=== PATIENT | female | born 1995 | race Caucasian/White ===

== ENCOUNTER 2019-01-19 14:17 | Emergency (ER) | payer OTHER, SELFPAY ==
[2019-01-19 14:45] VITALS: BP 110/70; PULSE 70; RESP 16; TEMP 36.7; O2SAT 100
--- NOTE | 2019-01-19 16:00 | ED.ABDPAIN ---
HPI - Abdominal Pain <PUJA Melton - Last Filed: 01/19/19 21:24> General Chief Complaint: Abdominal Pain Stated Complaint: ABD PAIN Time Seen by Provider: 01/19/19 15:36 Source: patient Mode of arrival: ambulatory Limitations: no limitations History of Present Illness HPI narrative: 23-year-old healthy female that is a nonsmoker for complaint of pain into her right upper quadrant for the last few days. She states the pain at the time of exam has gone away. She denies any stressors or relievers of her pain. last p.o. intake was earlier today. She denies that eating or drinking causes increases of her pain. No nausea vomiting. No fevers no chills. no trauma to the abdomen. Last bowel movement was yesterday and was unremarkable. she denies any other concerns or complaints at this time frame. MD complaint: abdominal pain Related Data Allergies Allergy/AdvReac Type Severity Reaction Status Date / Time No Known Drug Allergies Allergy Mild Unverified 01/28/18 13:08 venom-honey bee Allergy Unknown Unverified 01/28/18 13:08 [bee venom (honey bee)] Review of Systems <PUJA Melton - Last Filed: 01/19/19 21:24> Eyes Denies change in vision, Denies eye discharge, Denies irritation and Denies loss of vision Cardiovascular Denies dyspnea and Denies dyspnea on exertion Respiratory Denies cough, Denies dyspnea, Denies dyspnea on exertion and Denies wheezing Gastrointestinal Gastrointestinal: Reports abdominal pain, Denies change in bowel habits, Denies diarrhea, Denies nausea and Denies vomiting Genitourinary Denies hematuria, Denies flank pain, Denies urinary incontinence and Denies urinary urgency Musculoskeletal Denies back pain, Denies muscle weakness, Denies numbness and Denies tingling Integumentary/Breasts Denies pruritus, Denies erythema, Denies rash and Denies wounds Neurologic Denies loss of vision, Denies numbness and Denies tingling Hematologic/Lymphatic Denies easy bruising Allergic/Immunologic Denies wheezing PFSH <PUJA Melton - Last Filed: 01/19/19 21:24> Social History Smoking Status: Never smoker Social History Smoking Status: Never smoker Exam <PUJA Melton - Last Filed: 01/19/19 21:24> Initial Vital Signs Initial Vital Signs: Vital Signs Temperature 98.0 F 01/19/19 14:45 Pulse Rate 70 01/19/19 14:45 Respiratory Rate 16 01/19/19 14:45 Blood Pressure 110/70 01/19/19 14:45 Pulse Oximetry 100 01/19/19 14:45 Const General: cooperative and well developed Nutritional Appearance: well nourished Orientation: alert, awake, oriented x3 and not confused HENUT Mouth: oral mucosae normal and moist mucous membranes Eyes Conjunctivae: conjunctivae normal Sclera: sclerae normal Pupils: PERRL EOM: EOM intact bilaterally Resp Effort & Inspection: normal respiratory effort, able to speak in complete sentences, no respiratory distress and no use of accessory muscles Auscultation: clear to auscultation bilaterally, no rales, no rhonchi and no wheezes Cardio Rate: regular rate Rhythm: regular rhythm Heart Sounds: no click, no gallops, no murmurs and no rubs Pulses: normal peripheral pulses GI Inspection: non-distended Palpation: soft, no hepatosplenomegaly, No guarding, No pulsatile mass and No tender Auscultation: normal bowel sounds General: No CVA tenderness Skin General: no rashes or lesions noted, No jaundice and No petechiae Neuro General: alert, oriented x3, gait normal and no focal motor deficits Speech: speech normal <Chanda Moreno DO - Last Filed: 01/22/19 07:21> Initial Vital Signs Initial Vital Signs: Vital Signs Temperature 98.0 F 01/19/19 14:45 Pulse Rate 70 01/19/19 14:45 Respiratory Rate 16 01/19/19 14:45 Blood Pressure 110/70 01/19/19 14:45 Pulse Oximetry 100 01/19/19 14:45 Course <PUJA Melton - Last Filed: 01/19/19 21:24> Orders Ordered: ED Orders 01/19/19 16:16 US abdomen complete Stat 01/19/19 16:22 Complete Blood Count AUTO DIFF Stat Comprehensive Metabolic Panel Stat Lipase Stat Vital Signs - 8 hr 01/19/19 14:45 01/19/19 16:05 01/19/19 18:31 Temperature 98.0 F 98.1 F Pulse Rate 70 68 77 Respiratory Rate 16 15 18 Blood Pressure 110/70 110/71 Blood Pressure [Right Arm] 112/62 Pulse Oximetry 100 98 98 <Chanda Moreno DO - Last Filed: 01/22/19 07:21> Orders Ordered: ED Orders 01/19/19 16:16 US abdomen complete Stat 01/19/19 16:22 Complete Blood Count AUTO DIFF Stat Comprehensive Metabolic Panel Stat Lipase Stat Vital Signs - 8 hr 01/19/19 14:45 01/19/19 16:05 01/19/19 18:31 Temperature 98.0 F 98.1 F Pulse Rate 70 68 77 Respiratory Rate 16 15 18 Blood Pressure 110/70 110/71 Blood Pressure [Right Arm] 112/62 Pulse Oximetry 100 98 98 MDM - Abdominal Pain <PUJA Melton - Last Filed: 01/19/19 21:24> Lab Data Result diagrams: 01/19/19 16:22 01/19/19 16:22 Lab Results 01/19/19 01/19/19 Range/Units 16:22 16:22 WBC 5.0 (4.5-11.0) X10^3/uL RBC 4.52 (4.0-5.2) X10^6/uL Hgb 13.2 (12.0-16.0) g/dL Hct 39.5 (36-46) % MCV 87.5 (80-100) fL MCH 29.2 (26-34) PG MCHC 33.3 (30-36) % RDW 13.5 (11.6-14.8) % Plt Count 270 (150-400) X10^3/uL Neut % (Auto) 68.1 (50-75) % Lymph % (Auto) 22.1 L (25-40) % [place] % (Auto) 7.5 (3-14) % Eos % (Auto) 1.8 L (2-4) % Baso % (Auto) 0.5 (0-2) % Neut # (Auto) 3400 (3811-8857) /uL Lymph # (Auto) 1100 (9627-0224) /uL [place] # (Auto) 400 (0-900) /uL Eos # (Auto) 100 (0-450) /uL Baso # (Auto) 0 (0-100) /uL Sodium 138 (137-145) mmol/L Potassium 3.7 (3.4-5.1) mmol/L Chloride 103 (98-107) mmol/L Carbon Dioxide 26 (22-32) mmol/L BUN 9 (7-17) mg/dL Creatinine 0.60 (0.52-1.04) mg/dL Estimated GFR > 60.0 (>60) mL/min BUN/Creatinine Ratio 15.0 (6-22) Glucose 84 (70-100) mg/dL Calcium 9.1 (8.4-10.2) mg/dL Total Bilirubin 0.7 (0.2-1.3) mg/dL AST 31 (14-36) IU/L ALT 55 H (9-52) IU/L Alkaline Phosphatase 50 (38-126) U/L Total Protein 7.1 (6.3-8.2) g/dL Albumin 4.6 (3.5-5.0) g/dL Globulin 2.5 (1.7-4.1) g/dL Albumin/Globulin Ratio 1.8 (1.0-2.8) Lipase 45 (23-300) U/L Point of care testing: Point of Care Testing Test Results Negative Urine Dip Bedside Urine Glucose Negative Bedside Urine Bilirubin - Negative Bedside Urine Ketone ++ 40 Urine Specific [place] 1.015 Bedside Urine Occult Blood - Negative Bedside Urine pH 7.5 Bedside Urine Protein - Negative Bedside Urine Urobilinogen - Negative Bedside Urine Nitrite - Negative Bedside Urine Leukocytes - Negative Esterase Imaging Data US - abdomen: Radiologist's impression: [address] [address] Ultrasound Report Signed Patient: Taya Brower [facility]#: [id number] : 1995Acct:[id number] Age/Sex: 23 / FDate of Service: 01/19/19 Loc: ED Accession Number: [id number] Procedure: US abdomen complete Ordering Provider: Madan Aguilar PROCEDURE: US ABDOMEN COMPLETE INDICATIONS: RIGHT UPPER QUADRANT PAIN TECHNIQUE: Real-time scanning was performed of the abdominal and retroperitoneal organs, with image documentation. COMPARISON: None. FINDINGS: Liver: Liver is normal in size and homogeneous in echotexture. Gallbladder: Gallbladder demonstrates no visualized stones or sludge. Wall thickness is at the upper limits of normal measuring 3 mm. Biliary ducts: Intrahepatic bile ducts are non-dilated. Extrahepatic bile duct caliber measures 3 mm. Normal is 6-7 mm or less in diameter, or 10 mm or less post-cholecystectomy. Pancreas: Visualized portions of the pancreas are sonographically normal. Spleen: Spleen is normal in size and homogeneous in echotexture. Kidneys: Kidneys are normal in size and echotexture. Right kidney measures 10.4 cm long; left kidney measures 11.1 cm long. No hydronephrosis or nephrolithiasis. No solid masses. Aorta: Visualized aorta is normal in caliber at less than 3 cm. Iliacs: Proximal common iliac arteries are normal in caliber at less than 2.5 cm. IVC: Intrahepatic inferior vena cava is patent. Miscellaneous: No free abdominal fluid. IMPRESSION: 1. Gallbladder demonstrates wall thickness at the upper limits of normal. No visualized stones. Recommend correlation of patient's symptoms, as acalculus cholecystitis cannot be definitively excluded. Dictated by: Padmaja Schmidt M.D. on 01/19/2019 at 17:19 Approved by: Padmaja Schmidt M.D. on 01/19/2019 at 17:20 MDM Narrative Medical decision making narrative: CBC was obtained was unremarkable. Chemistry panel was also obtained was unremarkable. lipase was normal. ultrasound was obtained and shows the gallbladder wall thickness at upper limits of normal. No cholelithiasis. She is not tender to the abdomen area at this time frame. Her laboratory results were unremarkable. Do not appreciate cholecystitis at this time frame. Suspect there is some abdominal wall discomfort due to muscle strain. [id number] Tylenol as needed for any discomfort. Breast area. Follow up with primary care provider. Return emergency room for any worsening symptoms. <Chanda oMreno DO - Last Filed: 01/22/19 07:21> Lab Data Lab Results 01/19/19 01/19/19 Range/Units 16:22 16:22 WBC 5.0 (4.5-11.0) X10^3/uL RBC 4.52 (4.0-5.2) X10^6/uL Hgb 13.2 (12.0-16.0) g/dL Hct 39.5 (36-46) % MCV 87.5 (80-100) fL MCH 29.2 (26-34) PG MCHC 33.3 (30-36) % RDW 13.5 (11.6-14.8) % Plt Count 270 (150-400) X10^3/uL Neut % (Auto) 68.1 (50-75) % Lymph % (Auto) 22.1 L (25-40) % [place] % (Auto) 7.5 (3-14) % Eos % (Auto) 1.8 L (2-4) % Baso % (Auto) 0.5 (0-2) % Neut # (Auto) 3400 (5595-5755) /uL Lymph # (Auto) 1100 (5807-8783) /uL [place] # (Auto) 400 (0-900) /uL Eos # (Auto) 100 (0-450) /uL Baso # (Auto) 0 (0-100) /uL Sodium 138 (137-145) mmol/L Potassium 3.7 (3.4-5.1) mmol/L Chloride 103 (98-107) mmol/L Carbon Dioxide 26 (22-32) mmol/L BUN 9 (7-17) mg/dL Creatinine 0.60 (0.52-1.04) mg/dL Estimated GFR > 60.0 (>60) mL/min BUN/Creatinine Ratio 15.0 (6-22) Glucose 84 (70-100) mg/dL Calcium 9.1 (8.4-10.2) mg/dL Total Bilirubin 0.7 (0.2-1.3) mg/dL AST 31 (14-36) IU/L ALT 55 H (9-52) IU/L Alkaline Phosphatase 50 (38-126) U/L Total Protein 7.1 (6.3-8.2) g/dL Albumin 4.6 (3.5-5.0) g/dL Globulin 2.5 (1.7-4.1) g/dL Albumin/Globulin Ratio 1.8 (1.0-2.8) Lipase 45 (23-300) U/L Point of care testing: Point of Care Testing Test Results Negative Urine Dip Bedside Urine Glucose Negative Bedside Urine Bilirubin - Negative Bedside Urine Ketone ++ 40 Urine Specific [place] 1.015 Bedside Urine Occult Blood - Negative Bedside Urine pH 7.5 Bedside Urine Protein - Negative Bedside Urine Urobilinogen - Negative Bedside Urine Nitrite - Negative Bedside Urine Leukocytes - Negative Esterase Discharge Plan Departure Patient Disposition: Home Clinical Impression: Abdominal wall pain Discharge Date/Time: 01/19/19 18:30 Interventions: ED Discharge Assessment Last Done: 01/19/19 18:31 Instructions: DI for Abdominal Pain-Adult Activity Restrictions/Additional Instructions: Laboratory results today were unremarkable. ultrasound of the abdomen was obtained and shows that the gallbladder has falls that are upper range of normal for thickness. No gallstones are seen in today. Do not appreciate gallbladder illness at this time frame. Signs symptoms presents as abdominal wall pain due to muscle strain. Breast area. Use [id number] Tylenol as needed for any discomfort. Follow up with primary care provider. For any worsening symptoms return to the emergency room. Referrals: Mihir Waller MD [Primary Care Provider] - <Chanda Moreno DO - Last Filed: 01/22/19 07:21> Cosign ED Attending Alexandreaature Attestation: I was immediately available in the department for consultation. This documentation has been reviewed and I agree with assessment and plan. Supervised by Chanda Moreno DO
[2019-01-19 16:05] VITALS: BP 112/62; PULSE 68; RESP 15; O2SAT 98
--- NOTE | 2019-01-19 16:16 | DI.US.S_ITS ---
PROCEDURE: US ABDOMEN COMPLETE INDICATIONS: RIGHT UPPER QUADRANT PAIN TECHNIQUE: Real-time scanning was performed of the abdominal and retroperitoneal organs, with image documentation. COMPARISON: None. FINDINGS: Liver: Liver is normal in size and homogeneous in echotexture. Gallbladder: Gallbladder demonstrates no visualized stones or sludge. Wall thickness is at the upper limits of normal measuring 3 mm. Biliary ducts: Intrahepatic bile ducts are non-dilated. Extrahepatic bile duct caliber measures 3 mm. Normal is 6-7 mm or less in diameter, or 10 mm or less post-cholecystectomy. Pancreas: Visualized portions of the pancreas are sonographically normal. Spleen: Spleen is normal in size and homogeneous in echotexture. Kidneys: Kidneys are normal in size and echotexture. Right kidney measures 10.4 cm long; left kidney measures 11.1 cm long. No hydronephrosis or nephrolithiasis. No solid masses. Aorta: Visualized aorta is normal in caliber at less than 3 cm. Iliacs: Proximal common iliac arteries are normal in caliber at less than 2.5 cm. IVC: Intrahepatic inferior vena cava is patent. Miscellaneous: No free abdominal fluid. IMPRESSION: 1. Gallbladder demonstrates wall thickness at the upper limits of normal. No visualized stones. Recommend correlation of patient's symptoms, as acalculus cholecystitis cannot be definitively excluded. Dictated by: Padmaja Schmidt M.D. on 01/19/2019 at 17:19 Approved by: Padmaja Schmidt M.D. on 01/19/2019 at 17:20
[2019-01-19 16:41] LABS: Add Manual Diff / Slide Review NO; Basophils Absolute Auto 0 /uL (0-100); Basophils Percent Auto 0.5 % (0-2); Eosinophils Absolute Auto 100 /uL (0-450); Eosinophils Percent Auto 1.8 % (2-4); Hematocrit 39.5 % (36-46); Hemoglobin 13.2 g/dL (12.0-16.0); Lymphocytes Absolute Auto 1100 /uL (1100-4500); Lymphocytes Percent Auto 22.1 % (25-40); Mean Corpuscular HGB Conc 33.3 % (30-36); Mean Corpuscular Hemoglobin 29.2 PG (26-34); Mean Corpuscular Volume 87.5 fL (80-100); Monocytes Absolute Auto 400 /uL (0-900); Monocytes Percent Auto 7.5 % (3-14); Neutrophils Absolute Auto 3400 /uL (1500-7000); Neutrophils Percent Auto 68.1 % (50-75); Platelet Count 270 X10^3/uL (150-400); Red Blood Cell Count 4.52 X10^6/uL (4.0-5.2); Red Cell Distribution Width 13.5 % (11.6-14.8)
[2019-01-19 17:13] LABS: Alanine Aminotransferase 55 IU/L (9-52); Albumin 4.6 g/dL (3.5-5.0); Albumin Globulin Ratio 1.8 (1.0-2.8); Alkaline Phosphatase 50 U/L (38-126); Aspartate Aminotransferase 31 IU/L (14-36); Bilirubin Total 0.7 mg/dL (0.2-1.3); Blood Urea Nitrogen 9 mg/dL (7-17); Calcium 9.1 mg/dL (8.4-10.2); Carbon Dioxide 26 mmol/L (22-32); Chloride 103 mmol/L (98-107); Estimated Glomerular Filt Rate > 60.0 mL/min (>60); Globulin 2.5 g/dL (1.7-4.1); Glucose 84 mg/dL (70-100); HEMOLYSIS < 15 (0-50); Lipase 45 U/L (23-300); Potassium 3.7 mmol/L (3.4-5.1); Sodium 138 mmol/L (137-145); Total Protein 7.1 g/dL (6.3-8.2)
--- NOTE | 2019-01-19 18:14 | ED_ITS ---
HPI - Abdominal Pain <PUJA Melton - Last Filed: 01/19/19 21:24> General Chief Complaint: Abdominal Pain Stated Complaint: ABD PAIN Time Seen by Provider: 01/19/19 15:36 Source: patient Mode of arrival: ambulatory Limitations: no limitations History of Present Illness HPI narrative: 23-year-old healthy female that is a nonsmoker for complaint of pain into her right upper quadrant for the last few days. She states the pain at the time of exam has gone away. She denies any stressors or relievers of her pain. last p.o. intake was earlier today. She denies that eating or drinking causes increases of her pain. No nausea vomiting. No fevers no chills. no trauma to the abdomen. Last bowel movement was yesterday and was unremarkable. she denies any other concerns or complaints at this time frame. MD complaint: abdominal pain Related Data Allergies Allergy/AdvReac Type Severity Reaction Status Date / Time No Known Drug Allergies Allergy Mild Unverified 01/28/18 13:08 venom-honey bee Allergy Unknown Unverified 01/28/18 13:08 [bee venom (honey bee)] Review of Systems <PUJA Melton - Last Filed: 01/19/19 21:24> Eyes Denies change in vision, Denies eye discharge, Denies irritation and Denies loss of vision Cardiovascular Denies dyspnea and Denies dyspnea on exertion Respiratory Denies cough, Denies dyspnea, Denies dyspnea on exertion and Denies wheezing Gastrointestinal Gastrointestinal: Reports abdominal pain, Denies change in bowel habits, Denies diarrhea, Denies nausea and Denies vomiting Genitourinary Denies hematuria, Denies flank pain, Denies urinary incontinence and Denies urinary urgency Musculoskeletal Denies back pain, Denies muscle weakness, Denies numbness and Denies tingling Integumentary/Breasts Denies pruritus, Denies erythema, Denies rash and Denies wounds Neurologic Denies loss of vision, Denies numbness and Denies tingling Hematologic/Lymphatic Denies easy bruising Allergic/Immunologic Denies wheezing PFSH <PUJA Melton - Last Filed: 01/19/19 21:24> Social History Smoking Status: Never smoker Social History Smoking Status: Never smoker Exam <PUJA Melton - Last Filed: 01/19/19 21:24> Initial Vital Signs Initial Vital Signs: Vital Signs Temperature 98.0 F 01/19/19 14:45 Pulse Rate 70 01/19/19 14:45 Respiratory Rate 16 01/19/19 14:45 Blood Pressure 110/70 01/19/19 14:45 Pulse Oximetry 100 01/19/19 14:45 Const General: cooperative and well developed Nutritional Appearance: well nourished Orientation: alert, awake, oriented x3 and not confused HENDC Mouth: oral mucosae normal and moist mucous membranes Eyes Conjunctivae: conjunctivae normal Sclera: sclerae normal Pupils: PERRL EOM: EOM intact bilaterally Resp Effort & Inspection: normal respiratory effort, able to speak in complete sentences, no respiratory distress and no use of accessory muscles Auscultation: clear to auscultation bilaterally, no rales, no rhonchi and no wheezes Cardio Rate: regular rate Rhythm: regular rhythm Heart Sounds: no click, no gallops, no murmurs and no rubs Pulses: normal peripheral pulses GI Inspection: non-distended Palpation: soft, no hepatosplenomegaly, No guarding, No pulsatile mass and No tender Auscultation: normal bowel sounds General: No CVA tenderness Skin General: no rashes or lesions noted, No jaundice and No petechiae Neuro General: alert, oriented x3, gait normal and no focal motor deficits Speech: speech normal <Chanda Moreno DO - Last Filed: 01/22/19 07:21> Initial Vital Signs Initial Vital Signs: Vital Signs Temperature 98.0 F 01/19/19 14:45 Pulse Rate 70 01/19/19 14:45 Respiratory Rate 16 01/19/19 14:45 Blood Pressure 110/70 01/19/19 14:45 Pulse Oximetry 100 01/19/19 14:45 Course <PUJA Melton - Last Filed: 01/19/19 21:24> Orders Ordered: ED Orders 01/19/19 16:16 US abdomen complete Stat 01/19/19 16:22 Complete Blood Count AUTO DIFF Stat Comprehensive Metabolic Panel Stat Lipase Stat Vital Signs - 8 hr 01/19/19 14:45 01/19/19 16:05 01/19/19 18:31 Temperature 98.0 F 98.1 F Pulse Rate 70 68 77 Respiratory Rate 16 15 18 Blood Pressure 110/70 110/71 Blood Pressure [Right Arm] 112/62 Pulse Oximetry 100 98 98 <Chanda Moreno DO - Last Filed: 01/22/19 07:21> Orders Ordered: ED Orders 01/19/19 16:16 US abdomen complete Stat 01/19/19 16:22 Complete Blood Count AUTO DIFF Stat Comprehensive Metabolic Panel Stat Lipase Stat Vital Signs - 8 hr 01/19/19 14:45 01/19/19 16:05 01/19/19 18:31 Temperature 98.0 F 98.1 F Pulse Rate 70 68 77 Respiratory Rate 16 15 18 Blood Pressure 110/70 110/71 Blood Pressure [Right Arm] 112/62 Pulse Oximetry 100 98 98 MDM - Abdominal Pain <PUJA Melton - Last Filed: 01/19/19 21:24> Lab Data Result diagrams: 01/19/19 16:22 01/19/19 16:22 Lab Results 01/19/19 01/19/19 Range/Units 16:22 16:22 WBC 5.0 (4.5-11.0) X10^3/uL RBC 4.52 (4.0-5.2) X10^6/uL Hgb 13.2 (12.0-16.0) g/dL Hct 39.5 (36-46) % MCV 87.5 (80-100) fL MCH 29.2 (26-34) PG MCHC 33.3 (30-36) % RDW 13.5 (11.6-14.8) % Plt Count 270 (150-400) X10^3/uL Neut % (Auto) 68.1 (50-75) % Lymph % (Auto) 22.1 L (25-40) % [place] % (Auto) 7.5 (3-14) % Eos % (Auto) 1.8 L (2-4) % Baso % (Auto) 0.5 (0-2) % Neut # (Auto) 3400 (4592-7949) /uL Lymph # (Auto) 1100 (9857-2591) /uL [place] # (Auto) 400 (0-900) /uL Eos # (Auto) 100 (0-450) /uL Baso # (Auto) 0 (0-100) /uL Sodium 138 (137-145) mmol/L Potassium 3.7 (3.4-5.1) mmol/L Chloride 103 (98-107) mmol/L Carbon Dioxide 26 (22-32) mmol/L BUN 9 (7-17) mg/dL Creatinine 0.60 (0.52-1.04) mg/dL Estimated GFR > 60.0 (>60) mL/min BUN/Creatinine Ratio 15.0 (6-22) Glucose 84 (70-100) mg/dL Calcium 9.1 (8.4-10.2) mg/dL Total Bilirubin 0.7 (0.2-1.3) mg/dL AST 31 (14-36) IU/L ALT 55 H (9-52) IU/L Alkaline Phosphatase 50 (38-126) U/L Total Protein 7.1 (6.3-8.2) g/dL Albumin 4.6 (3.5-5.0) g/dL Globulin 2.5 (1.7-4.1) g/dL Albumin/Globulin Ratio 1.8 (1.0-2.8) Lipase 45 (23-300) U/L Point of care testing: Point of Care Testing Test Results Negative Urine Dip Bedside Urine Glucose Negative Bedside Urine Bilirubin - Negative Bedside Urine Ketone ++ 40 Urine Specific [place] 1.015 Bedside Urine Occult Blood - Negative Bedside Urine pH 7.5 Bedside Urine Protein - Negative Bedside Urine Urobilinogen - Negative Bedside Urine Nitrite - Negative Bedside Urine Leukocytes - Negative Esterase Imaging Data US - abdomen: Radiologist's impression: [address] [id number] Ultrasound Report Signed Patient: Taya Brower [facility]#: [id number] : 1995Acct:[id number] Age/Sex: 23 / FDate of Service: 01/19/19 Loc: ED Accession Number: [id number] Procedure: US abdomen complete Ordering Provider: Madan Aguilar PROCEDURE: US ABDOMEN COMPLETE INDICATIONS: RIGHT UPPER QUADRANT PAIN TECHNIQUE: Real-time scanning was performed of the abdominal and retroperitoneal organs, with image documentation. COMPARISON: None. FINDINGS: Liver: Liver is normal in size and homogeneous in echotexture. Gallbladder: Gallbladder demonstrates no visualized stones or sludge. Wall thickness is at the upper limits of normal measuring 3 mm. Biliary ducts: Intrahepatic bile ducts are non-dilated. Extrahepatic bile duct caliber measures 3 mm. Normal is 6-7 mm or less in diameter, or 10 mm or less post-cholecystectomy. Pancreas: Visualized portions of the pancreas are sonographically normal. Spleen: Spleen is normal in size and homogeneous in echotexture. Kidneys: Kidneys are normal in size and echotexture. Right kidney measures 10.4 cm long; left kidney measures 11.1 cm long. No hydronephrosis or nephrolithiasis. No solid masses. Aorta: Visualized aorta is normal in caliber at less than 3 cm. Iliacs: Proximal common iliac arteries are normal in caliber at less than 2.5 cm. IVC: Intrahepatic inferior vena cava is patent. Miscellaneous: No free abdominal fluid. IMPRESSION: 1. Gallbladder demonstrates wall thickness at the upper limits of normal. No visualized stones. Recommend correlation of patient's symptoms, as acalculus cholecystitis cannot be definitively excluded. Dictated by: Padmaja Schmidt M.D. on 01/19/2019 at 17:19 Approved by: Padmaja Schmidt M.D. on 01/19/2019 at 17:20 MDM Narrative Medical decision making narrative: CBC was obtained was unremarkable. Chemistry panel was also obtained was unremarkable. lipase was normal. ultrasound was obtained and shows the gallbladder wall thickness at upper limits of normal. No cholelithiasis. She is not tender to the abdomen area at this time frame. Her laboratory results were unremarkable. Do not appreciate cholecystitis at this time frame. Suspect there is some abdominal wall discomfort due to muscle strain. [id number] Tylenol as needed for any discomfort. Breast area. Follow up with primary care provider. Return emergency room for any worsening symptoms. <Chanda Moreno DO - Last Filed: 01/22/19 07:21> Lab Data Lab Results 01/19/19 01/19/19 Range/Units 16:22 16:22 WBC 5.0 (4.5-11.0) X10^3/uL RBC 4.52 (4.0-5.2) X10^6/uL Hgb 13.2 (12.0-16.0) g/dL Hct 39.5 (36-46) % MCV 87.5 (80-100) fL MCH 29.2 (26-34) PG MCHC 33.3 (30-36) % RDW 13.5 (11.6-14.8) % Plt Count 270 (150-400) X10^3/uL Neut % (Auto) 68.1 (50-75) % Lymph % (Auto) 22.1 L (25-40) % [place] % (Auto) 7.5 (3-14) % Eos % (Auto) 1.8 L (2-4) % Baso % (Auto) 0.5 (0-2) % Neut # (Auto) 3400 (0463-2452) /uL Lymph # (Auto) 1100 (3367-1061) /uL [place] # (Auto) 400 (0-900) /uL Eos # (Auto) 100 (0-450) /uL Baso # (Auto) 0 (0-100) /uL Sodium 138 (137-145) mmol/L Potassium 3.7 (3.4-5.1) mmol/L Chloride 103 (98-107) mmol/L Carbon Dioxide 26 (22-32) mmol/L BUN 9 (7-17) mg/dL Creatinine 0.60 (0.52-1.04) mg/dL Estimated GFR > 60.0 (>60) mL/min BUN/Creatinine Ratio 15.0 (6-22) Glucose 84 (70-100) mg/dL Calcium 9.1 (8.4-10.2) mg/dL Total Bilirubin 0.7 (0.2-1.3) mg/dL AST 31 (14-36) IU/L ALT 55 H (9-52) IU/L Alkaline Phosphatase 50 (38-126) U/L Total Protein 7.1 (6.3-8.2) g/dL Albumin 4.6 (3.5-5.0) g/dL Globulin 2.5 (1.7-4.1) g/dL Albumin/Globulin Ratio 1.8 (1.0-2.8) Lipase 45 (23-300) U/L Point of care testing: Point of Care Testing Test Results Negative Urine Dip Bedside Urine Glucose Negative Bedside Urine Bilirubin - Negative Bedside Urine Ketone ++ 40 Urine Specific [place] 1.015 Bedside Urine Occult Blood - Negative Bedside Urine pH 7.5 Bedside Urine Protein - Negative Bedside Urine Urobilinogen - Negative Bedside Urine Nitrite - Negative Bedside Urine Leukocytes - Negative Esterase Discharge Plan Departure Patient Disposition: Home Clinical Impression: Abdominal wall pain Discharge Date/Time: 01/19/19 18:30 Interventions: ED Discharge Assessment Last Done: 01/19/19 18:31 Instructions: DI for Abdominal Pain-Adult Activity Restrictions/Additional Instructions: Laboratory results today were unremarkable. ultrasound of the abdomen was obtained and shows that the gallbladder has falls that are upper range of normal for thickness. No gallstones are seen in today. Do not appreciate gallbladder illness at this time frame. Signs symptoms presents as abdominal wall pain due to muscle strain. Breast area. Use [id number] Tylenol as needed for any discomfort. Follow up with primary care provider. For any worsening symptoms return to the emergency room. Referrals: Mihir Waller MD [Primary Care Provider] - <Chanda Moreno DO - Last Filed: 01/22/19 07:21> Cosign ED Attending Alexandreaature Attestation: I was immediately available in the department for consultation. This documentation has been reviewed and I agree with assessment and plan. Supervised by Chanda Moreno DO
[2019-01-19 18:31] VITALS: BP 110/71; PULSE 77; RESP 18; TEMP 36.7; O2SAT 98
== END 2019-01-19 18:30 | disposition home or self-care (01) ==
PROVIDERS: Emergency Provider Nurse Practitioner Family; PCP Family Medicine
DX: R10.9 Unspecified abdominal pain (principal)
CPT/HCPCS: 36415; 76700; 80053; 81003; 81025; 83690; 85025; 99282; 99284

== ENCOUNTER → 2019-05-21 09:11 | Outpatient (CLI) | payer OTHER, MEDICAID, SELFPAY ==
--- NOTE | 2019-05-21 09:15 | DI.US.S_ITS ---
PROCEDURE: US OB <= 14 WEEKS FETUS INDICATIONS: INITIAL US: DATING AND VIABILITY PLEASE OUTSIDE/PRIOR DATING DATA: Last menstrual period (LMP): 02/14/19. LMP-based estimated date of delivery (ALONSO): 11/21/19. First dating scan (date and location): 05/21/19. Estimated date of delivery (ALONSO) from first dating scan: 11/15/19. TECHNIQUE: Real-time scanning was performed of the fetus and maternal pelvic organs, with image documentation. COMPARISON: None. FINDINGS: Embryo: Single living uterine fetus is present with a crown-rump length measuring 8.5 cm, 14 weeks 3 days. BPD measures 2.7 cm, 14 weeks 5 days. Head circumference measures 9.6 cm, 14 weeks 3 days. heart rate measures 157 beats per minute Measurement variability in dating: +/- 4 weeks by LMP, +/- 7 days by mean sac diameter (use before 6 weeks gestation if crown-rump length not able to be measured), +/- 5 days by crown-rump length (up to 8 weeks 6 days gestation), +/- 7 days by crown-rump length (up to 13 weeks 6 days gestation). Maternal organs: Ovaries not seen. Limited images through the kidneys demonstrate no hydronephrosis. IMPRESSION: Single living intrauterine fetus with a gestational age measuring 14 weeks 4 days by today's ultrasound measurements. This corresponds to an ALONSO of 11/15/19, concordant with reported LMP as above. Dictated by: Darion Murphy M.D. on 05/21/2019 at 14:24 Approved by: Darion Murphy M.D. on 05/21/2019 at 14:26
[2019-05-21 10:59] LABS: Add Manual Diff / Slide Review NO; Basophils Absolute Auto 0 /uL (0-100); Basophils Percent Auto 0.1 % (0-2); Eosinophils Absolute Auto 100 /uL (0-450); Eosinophils Percent Auto 1.4 % (2-4); Hematocrit 36.4 % (36-46); Hemoglobin 12.5 g/dL (12.0-16.0); Lymphocytes Absolute Auto 1300 /uL (1100-4500); Mean Corpuscular HGB Conc 34.4 % (30-36); Mean Corpuscular Hemoglobin 30.2 PG (26-34); Mean Corpuscular Volume 87.8 fL (80-100); Monocytes Absolute Auto 300 /uL (0-900); Monocytes Percent Auto 3.6 % (3-14); Neutrophils Absolute Auto 7600 /uL (1500-7000); Neutrophils Percent Auto 80.9 % (50-75); Platelet Count 218 X10^3/uL (150-400); Red Blood Cell Count 4.14 X10^6/uL (4.0-5.2); Red Cell Distribution Width 13.9 % (11.6-14.8); White Blood Cell Count 9.4 X10^3/uL (4.5-11.0)
[2019-05-21 11:00] LABS: Appearance Urine UA SL CLOUDY; Bilirubin Urine UA NEGATIVE (NEGATIVE); Color Urine UA YELLOW; Glucose Urine UA NEGATIVE (Negative); Ketones Urine UA NEGATIVE (NEGATIVE); Leukocyte Esterase Urine UA NEGATIVE (NEGATIVE); Nitrite Urine UA NEGATIVE (Negative); Occult Blood Urine UA NEGATIVE (Negative); Protein Urine UA NEGATIVE (Negative); Specific Gravity Urine UA 1.025 (1.000-1.035); Urobilinogen Urine UA 0.2 E.U./dL (0.2)
[2019-05-21 11:57] LABS: Hepatitis B Surface Antigen NEGATIVE s/c (NEGATIVE)
[2019-05-21 12:11] LABS: HIV 1 & 2 Ab/Ag 4th Gen Combo NEGATIVE (NEGATIVE); Hep C Virus Ab w/Reflex Quant NEGATIVE s/c (NEGATIVE)
[2019-05-23 16:06] LABS: RPR Screen Nonreactive (Nonreactive)
== END ==
PROVIDERS: PCP Family Medicine; Visit Provider Specialist
DX: Z34.82 Encounter for supervision of other normal pregnancy, second trimester (principal); Z3A.14 14 weeks gestation of pregnancy
CPT/HCPCS: 36415; 76801; 80055; 81003; 86787; 86803; 86850; 86900; 86901; 87077; 87086; 87389

== ENCOUNTER → 2019-10-29 10:55 | Outpatient (CLI) | payer OTHER, MEDICAID, SELFPAY ==
[2019-10-30 15:26] LABS: Strep Grp B PCR NEG for Grp B Strep
== END ==
PROVIDERS: PCP Family Medicine; Visit Provider Specialist
DX: Z34.83 Encounter for supervision of other normal pregnancy, third trimester (principal)
CPT/HCPCS: 87653

== ENCOUNTER 2019-11-14 03:58 | Inpatient (IN) | payer OTHER, MEDICAID, SELFPAY ==
--- NOTE | 2019-11-14 04:46 | PM.OBHP.1 ---
OB HPI Date/Time Date of admission: 11/14/19 Date Patient Seen: 11/14/19 Time Patient Seen: 04:46 History of Present Condition Chief complaint: LABOR : 3 Para: 2 Estimated Date of Delivery: 11/15/19 Estimated Gestational Age (weeks): 39 Narrative: Taya Brower is a 24 year old female admitted in active labor History of Present care: good care, initiated at week # (14), number of visits (8) and pounds weight gain (23) Dating criteria: based on 2nd trimester US only Ultrasounds: normal mid trimester US Obstetrical complications: none Medical complications: none Preadmission Labs Blood type: A (+) positive -: Antibody screen: negative, GBS status: negative, HBsAG: negative, HIV: negative and RPR/VDLR: negative -: Chlamydia screen: not detected and Gonorrhea screen: not detected -: Rubella: not immune and Varicella: immune HCAB: negative PAP: Normal 1 hr GTT: 138 Evaluation Evaluation Baseline heart rate: 150 Variability: Moderate (11-25) monitor accelerations: Present monitor decelerations: Absent Contraction Frequency (minutes): 3 Uterine Contraction Intensity: Strong/Firm Category of Tracing: I Cervical dilation (cm): 6 Cervical effacement (%): 80 station: -[facility] Medical History (Updated 08/10/19 @ 21:06 by Yumiko Mitchell) Chicken pox (Resolved ~1994) Scoliosis (Chronic ~2009) Shingles (Resolved ~2002) Family History (Updated 08/10/19 @ 21:11 by Yumiko Mitchell) Grandmother Breast cancer Skin cancer Lupus History of cholecystectomy Grandfather Cancer Grandmother Cancer Mental health problem Grandmother Alzheimer's disease Social History Smoking Status: Never smoker Meds Home Medications and Allergies Home Medications Medication Instructions Recorded Confirmed Type Double Electric breast Pump and #1 each 07/19/19 Rx Supplies Allergies Allergy/AdvReac Type Severity Reaction Status Date / Time No Known Drug Allergies Allergy Mild Unverified 01/28/18 13:08 venom-honey bee Allergy Unknown Unverified 01/28/18 13:08 [bee venom (honey bee)] Review of Systems Review of Systems Narrative: Patient denies leakage of fluid. Good movement. No headaches, scotoma, epigastric pain. ROS Unobtainable: All systems reviewed & are unremarkable except as noted in HPI and below Exam Vital Signs (past 8 hours): Blood pressure 128/82, pulse of 90, temperature 98.9? Narrative Exam Narrative: HEENT exam within normal limits. Lungs are clear to auscultation and percussion. Heart is regular rate and rhythm no S3-S4 or murmurs. Abdomen is gravid. Fetus is vertex. Extremities without edema and nontender. Objective Labs Result Diagrams: 11/14/19 04:45 Assessment and Plan Assessment and Plan Assessment and Plan narrative: Term in active labor. Anticipate vaginal delivery.
[2019-11-14 04:55] LABS: Add Manual Diff / Slide Review NO; Basophils Absolute Auto 0 /uL (0-100); Basophils Percent Auto 0.3 % (0-2); Eosinophils Absolute Auto 0 /uL (0-450); Eosinophils Percent Auto 0.3 % (2-4); Hematocrit 34.3 % (36-46); Lymphocytes Absolute Auto 2000 /uL (1100-4500); Lymphocytes Percent Auto 19.4 % (25-40); Mean Corpuscular Volume 88.6 fL (80-100); Monocytes Absolute Auto 600 /uL (0-900); Neutrophils Absolute Auto 7500 /uL (1500-7000); Platelet Count 183 X10^3/uL (150-400); Red Blood Cell Count 3.87 X10^6/uL (4.0-5.2); Red Cell Distribution Width 13.5 % (11.6-14.8); White Blood Cell Count 10.1 X10^3/uL (4.5-11.0)
--- NOTE | 2019-11-14 06:45 | PM.OBPRVD ---
Labor & Delivery Delivery date: 11/14/19 Intrapartal events: None Delivery monitor: external FHT and external uterine Route of delivery: L&D Laceration Description: None Estimated blood loss (mL): 200 Anesthesia type: Epidural Narrative: Patient arrived on Labor and delivery in active labor. She received an epidural catheter for pain control. heart tones category 1 to category 2 throughout labor. She had had spontaneous rupture membranes with thin meconium stained fluid. She had a spontaneous delivery over an intact perineum of a viable female . There was a nuchal cord that was reduced. The infant was placed on maternal abdomen. After the cord stopped pulsating the cord was clamped, cut, and cord bloods obtained. Placenta delivered spontaneously, intact, with 3 vessels. There were no cervical, vaginal, perineal tears. Both and mother doing well. Baby 1: gender: Female Presentation: vertex position: Right Occiput Anterior Placenta delivery description: Spontaneous cord vessel description: Nuchal Cord score (1 min): 9 score (5 min): 9 Plan for aftercare: Routine post section care
[2019-11-14] MEDS: IBUPROFEN 600 MG TABLET PO ×3 (11:08→22:57)
[2019-11-14 19:22] VITALS: BP 110/60
[2019-11-15] MEDS: IBUPROFEN 600 MG TABLET PO (05:03)
[2019-11-15 07:06] LABS: Hemoglobin 10.5 g/dL (12.0-16.0)
[2019-11-15 08:38] VITALS: BP 105/54; PULSE 80; RESP 16; TEMP 36.6
--- NOTE | 2019-11-15 09:31 | PM.OBDS.1 ---
Discharge Providers Provider Date of admission: 11/14/19 03:58 Discharge Date: 11/15/19 Primary care physician: Mihir Waller MD Consults: 11/15/19 06:43 Consult to Contact [employer]cher Routine Comment: Discharge provider: Ana Paula Richmond MD Summary Hospital Course Date Patient Seen: 11/15/19 Time Patient Seen: 09:32 Procedures: Epidural catheter, spontaneous vaginal delivery Hospital Course: Patient arrived on Labor and delivery in active labor. She received an epidural catheter for pain control. She delivered a viable female spontaneously after 4 hours and 35 minutes of labor. She had no tears. She is urinating and ambulating well. Mild lochia. Passing gas. No headaches, scotomata, epigastric pain. She is breast-feeding without difficulty. No depression. Peripartum Data Delivery Method: Natural Vaginal Laceration description: None Procedures: Epidural catheter, spontaneous vaginal delivery complications: none 1: Gender: Female Disposition of : home Discharge Diagnosis (1) Vaginal delivery: Status: Acute Status at Discharge Cognitive/behavioral status at discharge: oriented Functional status at discharge: independent ambulation Overall status at discharge: patient is progressing back to baseline Time Spent with Patient Time attestation: Total time spent providing and/or coordinating discharge services: Time spent: Less than 30 minutes Objective Labs Result Diagrams: 11/15/19 06:50 Labs: Laboratory Results - last 24 hr 11/15/19 06:50 Hgb 10.5 L Hct 30.0 L Exam Vital Signs (past 8 hours): - 11/15/19 08:38 Temperature 97.9 F Pulse Rate 80 Respiratory Rate 16 Blood Pressure 105/54 L Narrative Exam Narrative: Abdomen is soft, nontender. Uterus is firm, at U, nontender. Mild lochia. Extremities without edema and nontender. Patient is a positive. She is rubella nonimmune and will receive the rubella vaccine prior to discharge. She received Tdap in the 3rd trimester. Discharge Plan Discharge Plan Patient Disposition: Home Discharge orders & Medications Prescriptions: Continued (DME) Double Electric breast Pump and Supplies See Rx Instructions .ROUTE .MEDSUPPLY Qty: 1 RF: 0 Follow up/Referrals: Ana Paula Richmond MD [Physician] - 1 Month ( exam on at 11:00 AM with ) Mihir Waller MD [Primary Care Provider] - Diet/Activity/Treatments Diet: Regular Activity: Nothing in vagina for 4 weeks, showers not baths Skin/Wound/Dressing Care Report to your healthcare provider any signs of infection, such as:: chills, fever and increased pain Visit Report/Discharge Packet Instructions: DI for Labor and Delivery, Vaginal Discharge Data Primary Care Provider: Mihir Waller
[2019-11-15] MEDS: MEASLES,MUMPS,RUBELLA VACC/PF 0.5 ML VIAL SUBCUT (10:43)
== END 2019-11-15 11:00 | disposition home or self-care (01) | DRG 560 ==
PROVIDERS: Admitting Provider Specialist; PCP Family Medicine; Visit Provider Specialist
DX: O77.0 Labor and delivery complicated by meconium in amniotic fluid (principal); Z3A.39 39 weeks gestation of pregnancy; Z37.0 Single live birth; O69.81X0 Labor and delivery complicated by cord around neck, without compression, not applicable or unspecified
CPT/HCPCS: 01967; 36415; 59050; 59409; 85014; 85018; 85025; 86850; 86900; 86901; G0379

== ENCOUNTER → 2019-12-29 14:21 | Outpatient (CLI) | payer OTHER, MEDICAID, SELFPAY ==
--- NOTE | 2019-12-29 14:22 | DI.US.S_ITS ---
PROCEDURE: US PELVIC COMPLETE INDICATIONS: BLEEDING 5 WEEKS POST TECHNIQUE: Real-time scanning was performed of the pelvic organs, with image documentation. Additional endovaginal scanning was necessary due to incomplete visualization of the adnexal and endometrial structures by transabdominal scanning. COMPARISON: None. FINDINGS: Transabdominal scanning: Limited scanning through the kidneys shows no hydronephrosis. No pathologic free abdominal or pelvic fluid. Endovaginal scanning: Uterus: Uterus is normal in size at 7.1 x 4.4 x 5.7 cm. The endometrium measures 5.9 mm in combined thickness. No endometrial mass or fluid is seen. No evidence of retained products. Ovaries: Right ovary measures 1.6 x 2.3 x 2.4 cm in size. Left ovary measures 2.8 x 1.6 x 1.7 cm in size. Subcentimeter follicles are noted in bilateral ovaries. No gross solid appearing ovarian lesion. IMPRESSION: No evidence of retained product is seen within endometrium. No endometrial mass or fluid. Normal appearing bilateral ovaries. Dictated by: Vick Corrales M.D. on 12/29/2019 at 17:18 Approved by: Vick Corrales M.D. on 12/29/2019 at 17:20
== END ==
PROVIDERS: PCP Family Medicine; Referring Provider Obstetrics & Gynecology; Visit Provider Obstetrics & Gynecology
DX: O73.1 Retained portions of placenta and membranes, without hemorrhage (principal); R10.2 Pelvic and perineal pain
CPT/HCPCS: 76830; 76856

== ENCOUNTER → 2024-05-24 11:02 | Outpatient (CLI) | payer SELFPAY | PROVIDERS: PCP Physician Assistant; Visit Provider Physician Assistant | DX: J02.9 Acute pharyngitis, unspecified (principal) | CPT/HCPCS: 87070; 87077 ==

== ENCOUNTER → 2025-06-29 15:28 | Outpatient (CLI) | payer SELFPAY ==
--- NOTE | 2025-06-29 15:38 | DI.US.S_ITS ---
PROCEDURE: US OB <= 14 WEEKS FETUS INDICATIONS: vaginal bleeding, confirm viability/dating OUTSIDE/PRIOR DATING DATA: Last menstrual period (LMP): 04/21/2025. LMP-based estimated date of delivery (ALONSO): 01/26/2026. First dating scan (date and location): 06/29/2025. Estimated date of delivery (ALONSO) from first dating scan: 01/28/2026. TECHNIQUE: Real-time scanning was performed of the fetus and maternal pelvic organs, with image documentation. Endovaginal scanning was also performed to better visualize the fetus and maternal ovaries. COMPARISON: None. FINDINGS: Intrauterine gestation is seen with cardiac motion, rate 182 beats per minute. [place]-rump length is 2.7 cm. Ultrasound age is 9 weeks and 4 days. No significant adnexal abnormality. Probable left corpus luteum cyst. [id number] perigestational hemorrhage measuring 5.6 x 3.7 cm. IMPRESSION: Intrauterine gestation with cardiac motion, rate mildly greater than expected at 182 beats per minute. Ultrasound age is 9 weeks and 4 days, consistent with the reported LMP. Abej-[id number] perigestational hemorrhage. Dictated by: Adeel Bearden M.D. on 06/30/2025 at 7:04 Approved by: Adeel Bearden M.D. on 06/30/2025 at 7:06
== END ==
PROVIDERS: PCP Physician Assistant; Referring Provider Student in an Organized Health Care Education/Training Program; Visit Provider Student in an Organized Health Care Education/Training Program
DX: O20.9 Hemorrhage in early pregnancy, unspecified (principal); Z3A.01 Less than 8 weeks gestation of pregnancy
CPT/HCPCS: 76801